=== PATIENT | female | born 1970 ===

== ENCOUNTER 2017-04-27 09:59 | Observation (INO) | payer BC, MEDICAID ==
[2017-04-27 10:01] VITALS: BMI 33.9
[2017-04-27] MEDS ORDERED: Sodium Chloride 0.9% 1,000 ML IV STA (10:31)
[2017-04-27] MEDS ORDERED: Iohexol 240 (50 ml) PO ONE (10:33)
--- NOTE | 2017-04-27 10:43 | ED PDOC ---
HPI: Abdomen Time Seen by Provider: 04/27/17 10:10 Chief Complaint (Nursing): Abdominal Pain Chief Complaint (Provider): Abdominal Pain History Per: Patient History/Exam Limitations: no limitations Onset/Duration Of Symptoms: Hrs (since waking up) Current Symptoms Are (Timing): Still Present Associated Symptoms: Vomiting Additional Complaint(s): Lanny Pulido is a 46 y/o female with past medical history of non-insulin dependent diabetes and hypertension, who presents to the ED complaining of left- sided abdominal pain radiating toward the back, since waking up this morning. Patient also reports nausea and vomiting this morning, with associated urinary incontinence during the vomiting. Since then, patient is urinating normally. No diarrhea, hematuria, chest pain, shortness of breath, or history of similar pain. PMD: Unknown Past Medical History Reviewed: Historical Data, Nursing Documentation, Vital Signs Vital Signs: Last Vital Signs Temp 98.6 F 04/27/17 10:02 Pulse 67 04/27/17 12:38 Resp 20 04/27/17 12:38 BP 124/71 04/27/17 12:38 Pulse Ox 100 04/27/17 13:39 - Medical History PMH: Diabetes, HTN Denies: HIV, Chronic Kidney Disease - Surgical History Surgical History: Cholecystectomy - Family History Family History: States: Unknown Family Hx - Social History Current smoker - smoking cessation education provided: No Alcohol: None Drugs: Denies - Home Medications Home Medications: Ambulatory Orders Medication Instructions Recorded Losartan/Hydrochlorothiazide 1 tab PO DAILY 02/01/15 [Hyzaar 25 mg-100 mg] amLODIPine [Norvasc] 5 mg PO DAILY 02/01/15 Ciprofloxacin HCl [Cipro] 500 mg PO BID #20 tab 10/17/16 Dicyclomine [Dicyclomine HCl] 10 mg PO TID #12 cap 10/17/16 Famotidine [Pepcid] 20 mg PO Q12 #20 tab 10/17/16 Tamsulosin [Flomax] 0.4 mg PO DAILY #6 cap 10/17/16 traMADol [Ultram] 50 mg PO Q8 #10 tab 10/17/16 - Allergies Allergies/Adverse Reactions: Allergies Allergy/AdvReac Type Severity Reaction Status Date / Time No Known Allergies Allergy Verified 10/17/16 09:25 Review of Systems ROS Statement: Except As Marked, All Systems Reviewed And Found Negative Constitutional: Negative for: Fever, Chills Cardiovascular: Negative for: Chest Pain Respiratory: Negative for: Shortness of Breath Gastrointestinal: Positive for: Nausea, Vomiting, Abdominal Pain (left-sided, radiates to back). Negative for: Diarrhea Genitourinary Female: Negative for: Incontinence, Hematuria Musculoskeletal: Negative for: Back Pain Neurological: Negative for: Numbness, Dizziness Physical Exam - Reviewed Nursing Documentation Reviewed: Yes Vital Signs Reviewed: Yes - Physical Exam Appears: Positive for: Non-toxic, No Acute Distress Head Exam: Positive for: ATRAUMATIC, NORMAL INSPECTION, NORMOCEPHALIC Skin: Positive for: Normal Color, Warm, Dry Eye Exam: Positive for: EOMI, Normal appearance, PERRL Neck: Positive for: Normal, Painless ROM, Supple Cardiovascular/Chest: Positive for: Regular Rate, Rhythm. Negative for: Murmur Respiratory: Positive for: Normal Breath Sounds. Negative for: Accessory Muscle Use, Respiratory Distress Gastrointestinal/Abdominal: Positive for: Soft, Tenderness (tenderness to left upper and mid abdomen). Negative for: Other (Flank tenderness) Back: Positive for: Normal Inspection. Negative for: L CVA Tenderness, R CVA Tenderness, Vertebral Tenderness Extremity: Positive for: Normal ROM. Negative for: Pedal Edema, Deformity Neurologic/Psych: Positive for: Alert, Oriented. Negative for: Motor/Sensory Deficits - Laboratory Results Result Diagrams: 04/27/17 10:40 04/27/17 10:40 - ECG O2 Sat by Pulse Oximetry: 100 (RA) Pulse Ox Interpretation: Normal - CT Scan/US ct Other Rad Studies (CT/US): Read By Radiologist Other Rad Interpretation: 7cm left periumbilical hernia with omentum fat - Progress ED Course And Treament: 1533: Stable. AAOx3. Spoke with Dr. Ann. Wants pt. to be admit if still painful. Spoke with Dr. Laughlin, will admit. Medical Decision Making Medical Decision Making: Time: 10:31 Impression: Abdominal Pain Initial Plan: --CMP --Lipase --CBC w differential --Urine --Urine dipstick --CT Abdomen/Pelvis PO & IV contrast --NS IV 1000 ml at 1000 mls/hr --Iohexol 50 ml PO --Morphine 4 mg IV --Zofran 4 mg Iv --Placed on ED-OBS for abdominal pain Scribe Attestation: Documented by Ana Morocho, acting as a scribe for De Jesus MD Provider Scribe Attestation: All medical record entries made by the Scribe were at my direction and personally dictated by me. I have reviewed the chart and agree that the record accurately reflects my personal performance of the history, physical exam, medical decision making, and the department course for this patient. I have also personally directed, reviewed, and agree with the discharge instructions and disposition. ED OBSERVATION Date of observation admission: 04/27/17 Time of observation admission: 10:31 - Observation admission statement Patient is being placed in observation because:: Abdominal pain - Goals of Observation Goals of observation are:: Time extensive work up - Progress Note Progress Note: 04/27/17 Time: 10:31 --Patient is resting. Vital signs stable. Time: 12:00 --Patient continuing to rest. Vital signs stable. Time: 13:30 --Patient is resting. Vital signs stable. Disposition - Clinical Impression Clinical Impression: Abdominal pain - Patient ED Disposition Is Patient to be Admitted: Yes Counseled Patient/Family Regarding: Studies Performed, Diagnosis - Disposition Disposition Time: 15:34 Condition: FAIR - Pt Status Changed To: Hospital Disposition Of: Observation - POA Present On Arrival: None
[2017-04-27 10:51] LABS: BASO % 0.5 % (0.0-2.0); EOS # 0.3 K/uL (0.0-0.7); EOS % 4.1 % (0.0-4.0); HEMATOCRIT 38.7 % (34.0-47.0); LYMPH # 1.8 K/uL (1.0-4.3); LYMPH % 23.4 % (20.0-40.0); MEAN CORPUSCULAR HEMOGLOBIN 29.1 pg (27.0-31.0); MEAN CORPUSCULAR HGB CONC 33.5 g/dL (33.0-37.0); MEAN PLATELET VOLUME 8.2 fl (7.2-11.7); MONO # 0.4 K/uL (0.0-0.8); MONO % 4.9 % (0.0-10.0); NEUT % 67.1 % (50.0-75.0); NRBC % 0.1 % (0.0-0.0); RED CELL DISTRIBUTION WIDTH 16.3 % (11.5-14.5); WHITE BLOOD COUNT 7.5 K/uL (4.8-10.8)
[2017-04-27 10:57] LABS: ALB/GLOB RATIO 1.3 (1.0-2.1); ALKALINE PHOSPHATASE 71 U/L (38-126); ALT/SGPT 32 U/L (9-52); AST/SGOT 26 U/L (14-36); BILIRUBIN,TOTAL 0.4 mg/dl (0.2-1.3); BLOOD UREA NITROGEN 17 mg/dl (7-17); CALCIUM 9.1 mg/dL (8.4-10.2); CARBON DIOXIDE 21 mmol/L (22-30); CHLORIDE 106 mmol/L (98-107); GFR AFRICAN-AMERICAN > 60; GLUCOSE,RANDOM 158 mg/dL (65-105); LIPASE 51 U/L (23-300); POTASSIUM 3.5 MMOL/L (3.6-5.0); SODIUM 140 mmol/l (132-148); TOTAL PROTEIN 7.4 G/DL (6.3-8.2)
[2017-04-27] MEDS ORDERED: Iohexol 300 50 ML ONE (12:20)
[2017-04-27] MEDS ORDERED: Sodium Chloride 0.9% 50 ML IV ONE (12:21)
--- NOTE | 2017-04-27 14:22 | CT ---
PROCEDURE: CT Abdomen and Pelvis with contrast HISTORY: abd pain COMPARISON: None. TECHNIQUE: Contrast dose: 100 cc of Omnipaque 350 Radiation dose: Total exam DLP = 1298 mGy-cm. This CT exam was performed using one or more of the following dose reduction techniques: Automated exposure control, adjustment of the mA and/or kV according to patient size, and/or use of iterative reconstruction technique. FINDINGS: LOWER THORAX: Unremarkable. LIVER: Unremarkable. No gross lesion or ductal dilatation. GALLBLADDER AND BILE DUCTS: Cholecystectomy. . PANCREAS: Unremarkable. No gross lesion or ductal dilatation. SPLEEN: Unremarkable. ADRENALS: Unremarkable. No mass. KIDNEYS AND URETERS: Unremarkable. No hydronephrosis. No solid mass. VASCULATURE: Unremarkable. No aortic aneurysm. BOWEL: Unremarkable. No obstruction. No gross mural thickening. APPENDIX: Normal appendix. PERITONEUM: Unremarkable. No free fluid. No free air. LYMPH NODES: Unremarkable. No enlarged lymph nodes. BLADDER: Unremarkable. REPRODUCTIVE: Leiomyomatous uterus. BONES: No acute fracture. OTHER FINDINGS: 7 centimeter left periumbilical hernia containing omental fat. IMPRESSION: 7 centimeter left periumbilical hernia containing omental fat.
[2017-04-27 16:09] VITALS: PULSE 63; RESP 18; TEMP 98; O2SAT 99
[2017-04-27 16:10] VITALS: BP 120/64
--- NOTE | 2017-04-27 16:14 | CP.PCM.CON ---
History of Present Illness - History of Present Illness History of Present Illness: CC: abdominal pain HPI 46 year old female with PMH DM and HTN, ventral hernia presents to the emergency room with moderate to severe midepigastric/LUQ abdominal pain, sharp in nature, starting about 6 hours ago, associated with several episodes of NBNB emesis this morning. CT showed similar findings to 6 months ago -- ventral hernia, no signs of ischemia or incarceration. Pain controlled with morphine in ER. No further episodes of nauses or emesis. Discussed with Surgery master control supervisor as well as ER physician. Patient stable to return home with pain control as well as antiemetics. VSS, NAD. Patient to follow up with PCP as well as appointment with Dr. Ann, Surgery within one week. ROS: per HPI, 12 systems reviewed and negative PMD: DR. CHIDI MOORE PMH: DM HTN PSH: gallbladder C/Section FH: DM CAD HTN SH: denies tobacco, ETOH, IVDU Meds: as below Allergies: NKDA Vitals: reviewed and currently stable Temp Pulse Resp BP Pulse Ox 98 F 63 18 120/64 99 04/27/17 16:08 04/27/17 16:08 04/27/17 16:08 04/27/17 16:10 04/27/17 16:08 Exam: GEN: WDWN, alert, cooperative HEENT: NCAT, PERRL, EOMI NECK: supple, no JVD, no lymphadenopathy CARDIAC: +S1S2 RRR LUNG: CTAB No WRR ABD: SOFT tenderness at site of hernia ND BSX4 obese difficult to assess masses hsm EXT: +pedal pulses, equal strength NEURO: AAOx3 SKIN warm, dry PSYCH normal mood, normal affect Labs: 04/27/17 10:40 04/27/17 10:40 Rads: CT ABD +hernia, no incarceration noted Assessment and Plan: 46 year old female with PMH DM and HTN, ventral hernia presents to the emergency room with moderate to severe midepigastric/LUQ abdominal pain, sharp in nature, starting about 6 hours ago, associated with several episodes of NBNB emesis this morning. CT showed similar findings to 6 months ago -- ventral hernia, no signs of ischemia or incarceration. Pain controlled with morphine in ER. No further episodes of nauses or emesis. Discussed with Surgery master control supervisor as well as ER physician. Patient stable to return home with pain control as well as antiemetics. Patient to follow up with PCP as well as appointment with Dr. Ann, Surgery within one week. Past Patient History - Past Medical History & Family History Past Medical History?: Yes - Past Social History Alcohol: None Drugs: Denies - CARDIAC Hx Hypertension: Yes - PULMONARY Hx Respiratory Disorders: No - NEUROLOGICAL Hx Neurological Disorder: No - HEENT Hx HEENT Problems: No - RENAL Hx Chronic Kidney Disease: No - ENDOCRINE/METABOLIC Hx Diabetes Mellitus Type 2: Yes - HEMATOLOGICAL/ONCOLOGICAL Hx Human Immunodeficiency Virus (HIV): No - INTEGUMENTARY Hx Dermatological Problems: No - MUSCULOSKELETAL/RHEUMATOLOGICAL Hx Musculoskeletal Disorders: No Hx Falls: No - GASTROINTESTINAL Hx Gastrointestinal Disorders: No - GENITOURINARY/GYNECOLOGICAL Hx Genitourinary Disorders: No - PSYCHIATRIC Hx Psychophysiologic Disorder: No Hx Substance Use: No - SURGICAL HISTORY Hx Cholecystectomy: Yes - ANESTHESIA Hx Anesthesia: Yes Hx Anesthesia Reactions: No Hx Malignant Hyperthermia: No Meds Home Medications: Home Medication List Medication Instructions Recorded Confirmed Type Ibuprofen [Motrin] 600 mg PO TID 7 Days 04/27/17 Rx Allergies/Adverse Reactions: Allergies Allergy/AdvReac Type Severity Reaction Status Date / Time No Known Allergies Allergy Verified 10/17/16 09:25 Results - Vital Signs Recent Vital Signs: Last Vital Signs Temp 98 F 04/27/17 16:08 Pulse 63 04/27/17 16:08 Resp 18 04/27/17 16:08 BP 120/64 04/27/17 16:10 Pulse Ox 99 04/27/17 16:08 - Labs Result Diagrams: 04/27/17 10:40 04/27/17 10:40 Labs: Laboratory Results - last 24 hr 04/27/17 04/27/17 10:40 10:40 WBC 7.5 RBC 4.45 Hgb 13.0 Hct 38.7 MCV 87.0 D MCH 29.1 MCHC 33.5 RDW 16.3 H Plt Count 246 MPV 8.2 Neut % (Auto) 67.1 Lymph % (Auto) 23.4 [place] % (Auto) 4.9 Eos % (Auto) 4.1 H Baso % (Auto) 0.5 Neut # 5.0 Lymph # 1.8 [place] # 0.4 Eos # 0.3 Baso # 0.0 Sodium 140 Potassium 3.5 L Chloride 106 Carbon Dioxide 21 L Anion Gap 17 BUN 17 Creatinine 0.8 Est GFR ( Amer) > 60 Est GFR (Non-Af Amer) > 60 Random Glucose 158 H Calcium 9.1 Total Bilirubin 0.4 AST 26 ALT 32 Alkaline Phosphatase 71 Total Protein 7.4 Albumin 4.2 Globulin 3.2 Albumin/Globulin Ratio 1.3 Lipase 51
== END 2017-04-27 17:10 | disposition home or self-care (01) ==
LOC: H.ER 09:59 → H.EROBSV 10:31 → OBSVTOIN 10:31 → INTOOBSV 10:31 → H.MEDSURG1 15:44 → H.ERHOLD 17:10 → H.MEDSURG1 23:41 → H.ERHOLD 23:41
PROVIDERS: ADMIT Student in an Organized Health Care Education/Training Program; ATTEND Student in an Organized Health Care Education/Training Program
DX: R10.12 Left upper quadrant pain (principal); K43.9 Ventral hernia without obstruction or gangrene; I10 Essential (primary) hypertension; E11.9 Type 2 diabetes mellitus without complications
CPT/HCPCS: 74177; 80053; 81025; 83690; 85025; 99283; G0378; J2270; J2405; J7040; Q9966; Q9967

== ENCOUNTER 2017-06-02 12:53 | Emergency (ER) | payer BC ==
[2017-06-02 12:53] VITALS: BMI 33.9
[2017-06-02 13:00] VITALS: RESP 18
[2017-06-02] MEDS ORDERED: Sodium Chloride 0.9% 1,000 ML IV STA (13:18)
--- NOTE | 2017-06-02 13:22 | ED PDOC ---
HPI:Nausea, Vomiting, Diarrhea Time Seen by Provider: 06/02/17 13:11 Chief Complaint (Nursing): Dizziness/Lightheaded Chief Complaint (Provider): dizzy History Per: Patient History/Exam Limitations: no limitations Onset/Duration Of Symptoms: Days (tiday) Current Symptoms Are (Timing): Still Present Additional Complaint(s): Dizzy, room spinning. Nausea, nonbloody vomit. Also cough, congestion, runny nose. Ongoing since morning. No chest pain, dyspnea, weakness, headaches, numbness, tingles. No abd pain, leg pain. No fever. No neck pain. Past Medical History Reviewed: Nursing Documentation, Vital Signs Vital Signs: Last Vital Signs Temp 97.0 F L 06/02/17 12:57 Pulse 63 06/02/17 12:57 Resp 18 06/02/17 12:57 BP 99/43 L 06/02/17 12:57 Pulse Ox 95 06/02/17 12:57 - Medical History PMH: Diabetes, HTN Denies: HIV, Chronic Kidney Disease - Surgical History Surgical History: Cholecystectomy - Family History Family History: States: Unknown Family Hx - Living Arrangements Living Arrangements: With Family - Social History Alcohol: None Drugs: Denies - Home Medications Home Medications: Ambulatory Orders Medication Instructions Recorded Losartan/Hydrochlorothiazide 1 tab PO DAILY 02/01/15 [Hyzaar 25 mg-100 mg] amLODIPine [Norvasc] 5 mg PO DAILY 02/01/15 Ciprofloxacin HCl [Cipro] 500 mg PO BID #20 tab 10/17/16 Dicyclomine [Dicyclomine HCl] 10 mg PO TID #12 cap 10/17/16 Famotidine [Pepcid] 20 mg PO Q12 #20 tab 10/17/16 Tamsulosin [Flomax] 0.4 mg PO DAILY #6 cap 10/17/16 traMADol [Ultram] 50 mg PO Q8 #10 tab 10/17/16 Ibuprofen [Motrin] 600 mg PO TID 7 Days tab 04/27/17 Meclizine [Antivert] 12.5 mg PO DAILY PRN 5 Days tab 06/02/17 Ondansetron [Zofran] 4 mg PO Q8H PRN #6 tab 06/02/17 - Allergies Allergies/Adverse Reactions: Allergies Allergy/AdvReac Type Severity Reaction Status Date / Time No Known Allergies Allergy Verified 03/08/17 09:25 Review of Systems ROS Statement: Except As Marked, All Systems Reviewed And Found Negative ENT: Positive for: Nose Congestion Respiratory: Positive for: Cough Gastrointestinal: Positive for: Nausea, Vomiting Neurological: Positive for: Dizziness Physical Exam - Reviewed Nursing Documentation Reviewed: Yes Vital Signs Reviewed: Yes - Physical Exam Appears: Positive for: Non-toxic, No Acute Distress Head Exam: Positive for: ATRAUMATIC, NORMAL INSPECTION, NORMOCEPHALIC Skin: Positive for: Normal Color, Warm, DRY Eye Exam: Positive for: EOMI, Normal appearance, PERRL ENT: Positive for: Nasal Congestion. Negative for: Pharyngeal Erythema, Tonsillar Exudate Neck: Positive for: Normal, Painless ROM, Supple Cardiovascular/Chest: Positive for: Regular Rate, Rhythm. Negative for: Edema Respiratory: Positive for: CNT, Normal Breath Sounds Gastrointestinal/Abdominal: Positive for: Normal Exam, Bowel Sounds, Soft. Negative for: Tenderness Back: Positive for: Normal Inspection. Negative for: L CVA Tenderness, R CVA Tenderness Extremity: Positive for: Normal ROM. Negative for: Tenderness, Pedal Edema Neurologic/Psych: Positive for: Alert, cd reactor operator II-XII, Oriented. Negative for: Motor/Sensory Deficits, Aphasia, Facial Droop - Laboratory Results Result Diagrams: 06/02/17 13:50 06/02/17 13:50 Interpretation Of Abn Labs: 19 bun; 3.1 k - ECG ECG: Positive for: Interpreted By Me, Viewed By Ak ECG Rhythm: Positive for: Normal QRS, Normal ST Segment, Sinus Rhythm O2 Sat by Pulse Oximetry: 95 Pulse Ox Interpretation: Normal - CT Scan/US head Other Rad Studies (CT/US): Read By Radiologist Other Rad Interpretation: no acute - Progress ED Course And Treament: 1639: Feels much better. AAOx3. Not dizzy. Tolerated PO. Ambulated with no issues. Fu with pcp. Disposition - Clinical Impression Clinical Impression: Dizziness, URI (upper respiratory infection), Hypokalemia - Patient ED Disposition Is Patient to be Admitted: No Counseled Patient/Family Regarding: Studies Performed, Diagnosis, Need For Followup, Rx Given - Disposition Referrals: Mathew Hicks MD [Family Provider] - 06/03/17 Disposition: Routine/Home Disposition Time: 16:40 Condition: STABLE Additional Instructions: Return if not better in 3 days. Prescriptions: Meclizine [Antivert] 12.5 mg PO DAILY PRN 5 Days tab PRN Reason: Dizziness Ondansetron [Zofran] 4 mg PO Q8H PRN #6 tab PRN Reason: Nausea/Vomiting Instructions: Dizziness (ED), Hypokalemia (ED) Forms: [employer] ([place]) Print Language: ARMENIAN
[2017-06-02 13:57] LABS: BASO # 0.1 K/uL (0.0-0.2); BASO % 0.6 % (0.0-2.0); EOS # 0.4 K/uL (0.0-0.7); EOS % 4.4 % (0.0-4.0); HEMATOCRIT 38.8 % (34.0-47.0); LYMPH # 1.6 K/uL (1.0-4.3); LYMPH % 17.5 % (20.0-40.0); MEAN CELL VOLUME 88.7 fl (81.0-99.0); MEAN CORPUSCULAR HEMOGLOBIN 30.3 pg (27.0-31.0); MEAN CORPUSCULAR HGB CONC 34.2 g/dL (33.0-37.0); MEAN PLATELET VOLUME 7.9 fl (7.2-11.7); MONO # 0.6 K/uL (0.0-0.8); MONO % 6.6 % (0.0-10.0); NEUT # 6.6 K/uL (1.8-7.0); NEUT % 70.9 % (50.0-75.0); RED CELL DISTRIBUTION WIDTH 15.5 % (11.5-14.5); WHITE BLOOD COUNT 9.3 K/uL (4.8-10.8)
[2017-06-02 14:11] LABS: ALB/GLOB RATIO 1.3 (1.0-2.1); ALKALINE PHOSPHATASE 72 U/L (38-126); ALT/SGPT 38 U/L (9-52); AST/SGOT 37 U/L (14-36); BILIRUBIN,TOTAL 0.3 mg/dl (0.2-1.3); BLOOD UREA NITROGEN 19 mg/dl (7-17); CALCIUM 9.5 mg/dL (8.4-10.2); CARBON DIOXIDE 26 mmol/L (22-30); CHLORIDE 104 mmol/L (98-107); GFR AFRICAN-AMERICAN > 60; GLUCOSE,RANDOM 112 mg/dL (65-105); POTASSIUM 3.1 MMOL/L (3.6-5.0); SODIUM 141 mmol/l (132-148)
--- NOTE | 2017-06-02 14:51 | CT ---
PROCEDURE: CT HEAD WITHOUT CONTRAST. HISTORY: headache COMPARISON: None available. TECHNIQUE: Axial computed tomography images were obtained through the head/brain without intravenous contrast. Radiation dose: Total exam DLP = mGy-cm. This CT exam was performed using one or more of the following dose reduction techniques: Automated exposure control, adjustment of the mA and/or kV according to patient size, and/or use of iterative reconstruction technique. FINDINGS: HEMORRHAGE: No intracranial hemorrhage. BRAIN: No mass effect or edema. No atrophy or chronic microvascular ischemic changes. VENTRICLES: Unremarkable. No hydrocephalus. CALVARIUM: Unremarkable. PARANASAL SINUSES: Unremarkable as visualized. No significant inflammatory changes. MASTOID AIR CELLS: Unremarkable as visualized. No inflammatory changes. OTHER FINDINGS: None. IMPRESSION: Normal CT of the Head.
[2017-06-02] MEDS ORDERED: Potassium Chloride 20 mEq ER Tab PO STA (15:11)
[2017-06-02] MEDS ORDERED: Potassium Chloride 20 mEq ER Tab PO ONE ×2 (16:32→16:36)
[2017-06-02 16:53] VITALS: BP 120/78; PULSE 78; TEMP 97.5; O2SAT 98
--- NOTE | 2017-06-03 08:41 | CARD ---
APPROVED REPORT EKG Measurement Heart [id number] <Conclusion> Normal sinus rhythm Cannot rule out Anterior infarct, age undetermined Abnormal ECG
== END 2017-06-02 16:53 | disposition home or self-care (01) ==
LOC: H.ER 12:53
DX: R42 Dizziness and giddiness (principal); E87.6 Hypokalemia; E11.9 Type 2 diabetes mellitus without complications; I10 Essential (primary) hypertension
CPT/HCPCS: 70450; 80053; 81025; 84484; 85025; 87804; 93005; 96374; 99285; J2405; J7040

== ENCOUNTER 2017-08-20 15:57 | Emergency (ER) | payer BC ==
[2017-08-20 15:57] VITALS: BMI 33.9
[2017-08-20 16:24] VITALS: BP 105/71; PULSE 78; RESP 16; TEMP 98.6; O2SAT 98
[2017-08-20] MEDS ORDERED: Albuterol-Ipratrop 3 mg / 0.5 (3 ml) UD ONE (17:51)
[2017-08-20] MEDS: Albuterol-Ipratrop 3 mg / 0.5 (3 ml) UD INH STA (17:52)
--- NOTE | 2017-08-20 18:41 | ED PDOC ---
HPI: General Adult Time Seen by Provider: 08/20/17 17:13 Chief Complaint (Nursing): Flu-like Symptoms Chief Complaint (Provider): flu like symptoms History Per: Patient History/Exam Limitations: no limitations Onset/Duration Of Symptoms: Days (1-2) Have you had recent travel within the past 21 days to any of the following countries: [place], [place], [place] or [place]?: No Current Symptoms Are (Timing): Still Present Additional Complaint(s): 47yo F with cough nonproductive malaise fever chills dec PO intake and MIRANDA. x1- 2days. all family members with similar Past Medical History Reviewed: Historical Data, Nursing Documentation, Vital Signs Vital Signs: Last Vital Signs Temp 98.6 F 08/20/17 16:22 Pulse 78 08/20/17 16:22 Resp 16 08/20/17 16:22 BP 105/71 08/20/17 16:22 Pulse Ox 98 08/20/17 19:04 - Medical History PMH: Diabetes, HTN Denies: HIV, Chronic Kidney Disease - Surgical History Surgical History: Cholecystectomy - Family History Family History: States: Unknown Family Hx - Home Medications Home Medications: Ambulatory Orders Medication Instructions Recorded Losartan/Hydrochlorothiazide 1 tab PO DAILY 02/01/15 [Hyzaar 25 mg-100 mg] amLODIPine [Norvasc] 5 mg PO DAILY 02/01/15 Ciprofloxacin HCl [Cipro] 500 mg PO BID #20 tab 10/17/16 Dicyclomine [Dicyclomine HCl] 10 mg PO TID #12 cap 10/17/16 Famotidine [Pepcid] 20 mg PO Q12 #20 tab 10/17/16 Tamsulosin [Flomax] 0.4 mg PO DAILY #6 cap 10/17/16 traMADol [Ultram] 50 mg PO Q8 #10 tab 10/17/16 Ibuprofen [Motrin] 600 mg PO TID 7 Days tab 04/27/17 Meclizine [Antivert] 12.5 mg PO DAILY PRN 5 Days tab 06/02/17 Ondansetron [Zofran] 4 mg PO Q8H PRN #6 tab 06/02/17 Albuterol HFA [Ventolin HFA 90 2 puff IH Q6 #200 puff 08/20/17 mcg/actuation (8 g)] Ibuprofen [Motrin] 400 mg PO Q6 #30 tab 08/20/17 Oseltamivir Phosphate [Tamiflu] 75 mg PO BID #10 capsule 08/20/17 - Allergies Allergies/Adverse Reactions: Allergies Allergy/AdvReac Type Severity Reaction Status Date / Time No Known Allergies Allergy Verified 08/20/17 16:22 Review of Systems ROS Statement: Except As Marked, All Systems Reviewed And Found Negative Respiratory: Positive for: Cough. Negative for: Shortness of Breath, Sputum Gastrointestinal: Negative for: Nausea, Vomiting Physical Exam - Reviewed Nursing Documentation Reviewed: Yes Vital Signs Reviewed: Yes - Physical Exam Appears: Positive for: Non-toxic, No Acute Distress, Uncomfortable Skin: Positive for: Normal Color, Warm, DRY Eye Exam: Positive for: Normal appearance, EOMI, PERRL ENT: Positive for: Normal ENT Inspection Cardiovascular/Chest: Positive for: Regular Rate, Rhythm Respiratory: Positive for: Normal Breath Sounds. Negative for: Wheezing Neurologic/Psych: Positive for: Alert, Oriented - ECG O2 Sat by Pulse Oximetry: 98 - Radiology X-Ray: Interpreted by Me, Read By Radiologist X-Ray Interpretation: No Acute Disease Medical Decision Making Medical Decision Making: pt with flu like symptoms will be d.c with tamiflu. given duoneb and motrin for fever Disposition - Clinical Impression Clinical Impression: Influenza, Influenza-like symptoms - Patient ED Disposition Is Patient to be Admitted: No Counseled Patient/Family Regarding: Studies Performed, Diagnosis, Need For Followup, Rx Given - Disposition Disposition: Routine/Home Disposition Time: 18:44 Condition: STABLE Prescriptions: Albuterol HFA [Ventolin HFA 90 mcg/actuation (8 g)] 2 puff IH Q6 #200 puff Ibuprofen [Motrin] 400 mg PO Q6 #30 tab Oseltamivir Phosphate [Tamiflu] 75 mg PO BID #10 capsule Instructions: Influenza (ED) Forms: [employer] ([place]izen [place]), [facility] ED School/Work Excuse
--- NOTE | 2017-08-21 10:58 | CARD ---
APPROVED REPORT EKG Measurement Heart [id number] <Conclusion> Normal sinus rhythm Left axis deviation Poor R wave progression V1 to V5 Abnormal ECG
== END 2017-08-20 19:34 | disposition home or self-care (01) ==
LOC: H.ER 15:57
DX: J10.1 Influenza due to other identified influenza virus with other respiratory manifestations (principal); E11.9 Type 2 diabetes mellitus without complications; I10 Essential (primary) hypertension

== ENCOUNTER 2018-12-04 15:42 | Emergency (ER) | payer BC ==
[2018-12-04 15:42] VITALS: BMI 33.9
[2018-12-04 15:55] VITALS: TEMP 98.6; O2SAT 98
[2018-12-04] MEDS ORDERED: DiphenhydrAMINE 50 mg/ml Inj IVP STA (16:44)
--- NOTE | 2018-12-04 16:46 | ED PDOC ---
Lower Extremity Pain/Injury Time Seen by Provider: 12/04/18 16:24 Chief Complaint (Nursing): Lower Extremity Problem/Injury Chief Complaint (Provider): Leg pain History Per: Patient Additional Complaint(s): 48 yo female, PMH of asthma, DM and HTN, presents to ED with complaints of LE rash that developed 2 weeks ago, associated with swelling and pain. Pt has not taken any medications thus far. No redness or swelling to joints. no fever or chills. Past Medical History Reviewed: Nursing Documentation, Vital Signs Vital Signs: Last Vital Signs Temp 98.6 F 12/04/18 15:51 Pulse 70 12/04/18 15:51 Resp 16 12/04/18 15:51 BP 118/74 12/04/18 15:51 Pulse Ox 98 12/04/18 15:51 - Medical History PMH: Diabetes, HTN Denies: HIV, Chronic Kidney Disease - Surgical History Surgical History: Cholecystectomy - Family History Family History: States: Unknown Family Hx - Living Arrangements Living Arrangements: With Family - Home Medications Home Medications: Ambulatory Orders Medication Instructions Recorded Losartan/Hydrochlorothiazide 1 tab PO DAILY 02/01/15 [Hyzaar 25 mg-100 mg] amLODIPine [Norvasc] 5 mg PO DAILY 02/01/15 Ciprofloxacin HCl [Cipro] 500 mg PO BID #20 tab 10/17/16 Dicyclomine [Dicyclomine HCl] 10 mg PO TID #12 cap 10/17/16 Famotidine [Pepcid] 20 mg PO Q12 #20 tab 10/17/16 Tamsulosin [Flomax] 0.4 mg PO DAILY #6 cap 10/17/16 traMADol [Ultram] 50 mg PO Q8 #10 tab 10/17/16 Ibuprofen [Motrin] 600 mg PO TID 7 Days tab 04/27/17 Meclizine [Antivert] 12.5 mg PO DAILY PRN 5 Days tab 06/02/17 Ondansetron [Zofran] 4 mg PO Q8H PRN #6 tab 06/02/17 Albuterol HFA [Ventolin HFA 90 2 puff IH Q6 #200 puff 08/20/17 mcg/actuation (8 g)] Ibuprofen [Motrin] 400 mg PO Q6 #30 tab 08/20/17 Oseltamivir Phosphate [Tamiflu] 75 mg PO BID #10 capsule 01/09/18 DiphenhydrAMINE [Benadryl] 50 mg PO Q4 PRN #30 cap 12/04/18 Methylprednisolone [Medrol Dose 4 mg PO DAILY #21 mg 12/04/18 Pack (21 tabs)] Triamcinolone 0.1% [Triamcinolone 0.1 cre TP DAILY #1 tube 12/04/18 0.1% Cream] - Allergies Allergies/Adverse Reactions: Allergies Allergy/AdvReac Type Severity Reaction Status Date / Time No Known Allergies Allergy Verified 12/04/18 15:49 Review of Systems ROS Statement: Except As Marked, All Systems Reviewed And Found Negative Skin: Positive for: Rash Physical Exam - Reviewed Nursing Documentation Reviewed: Yes Vital Signs Reviewed: Yes - Physical Exam Appears: Positive for: Well, Non-toxic, No Acute Distress Head Exam: Positive for: ATRAUMATIC, NORMAL INSPECTION, NORMOCEPHALIC Skin: Positive for: Normal Color, Warm, Rash (LLE- mid tibial shaft (+) cluzter of scabbed over papules, no surrounding erythema.) Eye Exam: Positive for: EOMI, Normal appearance, PERRL ENT: Positive for: Normal ENT Inspection Neck: Positive for: Normal, Painless ROM Cardiovascular/Chest: Positive for: Regular Rate, Rhythm Respiratory: Positive for: CNT, Normal Breath Sounds Gastrointestinal/Abdominal: Positive for: Normal Exam, Soft Back: Positive for: Normal Inspection Extremity: Positive for: Normal ROM, Tenderness, Other (DP and PT pulses 2+). Negative for: Calf Tenderness, Deformity, Swelling Neurological/Psych: Positive for: Awake, Alert, Normal Tone - Laboratory Results Result Diagrams: 12/04/18 17:00 12/04/18 17:00 - ECG O2 Sat by Pulse Oximetry: 98 Medical Decision Making Medical Decision Making: IV Solumedrol and Benadryl administered. Duplex LE US obtained: Negative for DVT B/L Pt doing well on re-eval, edema improving and Pt reports pruritus improved as well. Stable for discharge at this time. Given RX to continue Medrol, Benadryl and triamcinalone cream. Advised to return if at anytime condition worsens Disposition - Clinical Impression Clinical Impression: Leg pain, Contact dermatitis, Hyperkalemia - Patient ED Disposition Is Patient to be Admitted: No - Disposition Disposition: Routine/Home Disposition Time: 20:09 Condition: STABLE Prescriptions: DiphenhydrAMINE [Benadryl] 50 mg PO Q4 PRN #30 cap PRN Reason: Rash Methylprednisolone [Medrol Dose Pack (21 tabs)] 4 mg PO DAILY #21 mg Triamcinolone 0.1% [Triamcinolone 0.1% Cream] 0.1 cre TP DAILY #1 tube Instructions: Dermatitis Forms: [employer] ([place])
[2018-12-04] MEDS ORDERED: DiphenhydrAMINE 50 mg/ml Inj ONE (17:01)
[2018-12-04 17:20] LABS: BASO % 0.4 % (0.0-2.0); EOS # 0.2 K/uL (0.0-0.7); EOS % 1.6 % (0.0-4.0); HEMOGLOBIN 13.8 g/dL (12.0-16.0); LYMPH # 2.7 K/uL (1.0-4.3); LYMPH % 28.4 % (20.0-40.0); MEAN CELL VOLUME 94.2 fl (81.0-99.0); MEAN CORPUSCULAR HEMOGLOBIN 31.9 pg (27.0-31.0); MEAN CORPUSCULAR HGB CONC 33.9 g/dL (33.0-37.0); MONO # 0.6 K/uL (0.0-0.8); MONO % 6.2 % (0.0-10.0); NEUT % 63.4 % (50.0-75.0); NRBC % 0.2 % (0.0-0.0); RBC 4.31 Mil/uL (3.80-5.20); RED CELL DISTRIBUTION WIDTH 13.4 % (11.5-14.5); WHITE BLOOD COUNT 9.5 K/uL (4.8-10.8)
[2018-12-04 17:23] LABS: ALB/GLOB RATIO 1.3 (1.0-2.1); ALBUMIN 4.4 g/dL (3.5-5.0); ALT/SGPT 87 U/L (9-52); AST/SGOT 66 U/L (14-36); BLOOD UREA NITROGEN 17 mg/dl (7-17); CALCIUM 9.6 mg/dL (8.4-10.2); GFR NON-AFRICAN AMERICAN > 60
--- NOTE | 2018-12-04 18:42 | US ---
Date of service: 12/04/2018 PROCEDURE: Bilateral lower extremity venous duplex Doppler. HISTORY: r/o DVT COMPARISON: None available. TECHNIQUE: Bilateral common femoral, superficial femoral, popliteal and posterior tibial veins were evaluated. Flow was assessed with color Doppler, compressibility, assessment of phasic flow and augmentation response. FINDINGS: COMMON FEMORAL VEIN: Right CFV: Unremarkable. Left CFV: Unremarkable. SUPERFICIAL FEMORAL VEIN: Right SFV: Unremarkable. Left SFV: Unremarkable. POPLITEAL VEIN: Right Popliteal: Unremarkable. Left Popliteal: Unremarkable. POSTERIOR TIBIAL VEIN: Right PTV: Unremarkable. Left PTV: Unremarkable. OTHER FINDINGS: None. IMPRESSION: No evidence of deep venous thrombosis.
[2018-12-04 19:07] VITALS: BP 103/57; PULSE 66; RESP 21
[2018-12-04] MEDS ORDERED: Potassium Chloride 20 mEq ER Tab PO ONE (20:07)
== END 2018-12-04 20:42 | disposition home or self-care (01) ==
LOC: H.ER 15:42
DX: L25.9 Unspecified contact dermatitis, unspecified cause (principal); E87.5 Hyperkalemia; E11.9 Type 2 diabetes mellitus without complications; I10 Essential (primary) hypertension
CPT/HCPCS: 80053; 81025; 85025; 93970; 96374; 96375; 99283; J1200; J2930

== ENCOUNTER 2019-01-05 16:06 | Emergency (ER) | payer BC ==
[2019-01-05 16:06] VITALS: BMI 33.9
[2019-01-05] MEDS ORDERED: DiphenhydrAMINE 50 mg/ml Inj IVP STA (17:03)
--- NOTE | 2019-01-05 17:28 | ED PDOC ---
HPI: Abdomen Time Seen by Provider: 01/05/19 16:42 Chief Complaint (Nursing): Abdominal Pain Chief Complaint (Provider): Abdominal Pain History Per: Patient History/Exam Limitations: no limitations Onset/Duration Of Symptoms: Hrs Current Symptoms Are (Timing): Still Present Additional Complaint(s): 48 y/o female with a PMHx of HTN and DM presents to the ED for evaluation of abdominal pain. Patient reports of having woke up this morning with mild abdominal pain that has worsened over the course of the day. Patient reports of developing sharp, severe abdominal pain associated with 5 episodes of non- bloody, non-bilious vomiting about one or two hours prior to arrival. Patient denies constipation, diarrhea, melena, hematochezia, urinary symptoms, vaginal bleeding and vaginal discharge. Patient notes her last normal bowel movement was last night. Patient reports of having eaten breakfast this morning but denies eating lunch. Patient notes of experiencing similar pain about a year and a half ago and diagnosed with a hernia that did not require surgery at that time. Patient states pain radiates down the left and to the back PMD: Mathew Hicks LNMP: One Week ago Abnormal Vaginal Bleeding: No Past Medical History Reviewed: Historical Data, Nursing Documentation, Vital Signs Vital Signs: Last Vital Signs Temp 98.7 F 01/05/19 16:14 Pulse 66 01/05/19 16:14 Resp 18 01/05/19 16:14 BP 113/42 L 01/05/19 16:14 Pulse Ox 98 01/05/19 16:14 Primary Care Provider: Mathew Hicks - Medical History PMH: Diabetes, HTN Denies: HIV, Chronic Kidney Disease - Surgical History Surgical History: Cholecystectomy, - Family History Family History: States: Hypertension - Social History Current smoker - smoking cessation education provided: No Alcohol: None Drugs: Denies - Home Medications Home Medications: Ambulatory Orders Medication Instructions Recorded Losartan/Hydrochlorothiazide 1 tab PO DAILY 02/01/15 [Hyzaar 25 mg-100 mg] amLODIPine [Norvasc] 5 mg PO DAILY 02/01/15 Ciprofloxacin HCl [Cipro] 500 mg PO BID #20 tab 10/17/16 Dicyclomine [Dicyclomine HCl] 10 mg PO TID #12 cap 10/17/16 Famotidine [Pepcid] 20 mg PO Q12 #20 tab 10/17/16 Tamsulosin [Flomax] 0.4 mg PO DAILY #6 cap 10/17/16 traMADol [Ultram] 50 mg PO Q8 #10 tab 10/17/16 Ibuprofen [Motrin] 600 mg PO TID 7 Days tab 04/27/17 Meclizine [Antivert] 12.5 mg PO DAILY PRN 5 Days tab 06/02/17 Ondansetron [Zofran] 4 mg PO Q8H PRN #6 tab 06/02/17 Albuterol HFA [Ventolin HFA 90 2 puff IH Q6 #200 puff 08/20/17 mcg/actuation (8 g)] Ibuprofen [Motrin] 400 mg PO Q6 #30 tab 08/20/17 Oseltamivir Phosphate [Tamiflu] 75 mg PO BID #10 capsule 08/20/17 DiphenhydrAMINE [Benadryl] 50 mg PO Q4 PRN #30 cap 12/04/18 Methylprednisolone [Medrol Dose 4 mg PO DAILY #21 mg 12/04/18 Pack (21 tabs)] Triamcinolone 0.1% [Triamcinolone 0.1 cre TP DAILY #1 tube 12/04/18 0.1% Cream] Ibuprofen [Motrin Tab] 600 mg PO Q8 PRN #60 tab 01/05/19 Ondansetron ODT [Zofran ODT] 1 odt PO Q6 PRN #20 odt 01/05/19 - Allergies Allergies/Adverse Reactions: Allergies Allergy/AdvReac Type Severity Reaction Status Date / Time No Known Allergies Allergy Verified 12/04/18 15:49 Review of Systems ROS Statement: Except As Marked, All Systems Reviewed And Found Negative (as per HPI) Gastrointestinal: Positive for: Vomiting, Abdominal Pain. Negative for: Diarrhea, Constipation, Melena, Hematochezia Genitourinary Female: Negative for: Dysuria, Frequency, Hematuria, Vaginal Discharge, Vaginal Bleeding Musculoskeletal: Positive for: Back Pain, Leg Pain Physical Exam - Reviewed Nursing Documentation Reviewed: Yes Vital Signs Reviewed: Yes - Physical Exam Appears: Positive for: In Acute Distress (and morbidly obese) Head Exam: Positive for: ATRAUMATIC, NORMOCEPHALIC Skin: Positive for: Warm, Dry ENT: Positive for: Moist Mucous Membranes, Pharynx Is (clear) Neck: Positive for: Painless ROM, Supple Cardiovascular/Chest: Positive for: Regular Rate, Rhythm. Negative for: Murmur Respiratory: Positive for: Normal Breath Sounds. Negative for: Respiratory Distress Gastrointestinal/Abdominal: Positive for: Soft, Tenderness (LLQ and left periumilical tenderness. No McBurney's Point Tenderness). Negative for: Mass, Guarding, Rebound Back: Positive for: Normal Inspection. Negative for: Decreased ROM Extremity: Positive for: Normal ROM. Negative for: Deformity Lymphatic: Negative for: Adenopathy Neurological/Psych: Positive for: Awake, Alert. Negative for: Motor/Sensory Deficits - Laboratory Results Result Diagrams: 01/05/19 18:10 01/05/19 18:10 - ECG O2 Sat by Pulse Oximetry: 98 (RA) Pulse Ox Interpretation: Normal Medical Decision Making Medical Decision Making: Time: 1703 Impression: Abdominal Pain Differentials include but not limited to incarcerated hernia, renal colic, colitis, diverticulitis and obstruction Plan: -- Type and Screen -- VBG -- CT Abd/Pelvis IV Contrast -- CMP -- Lact Acid, Plasma -- Lipase -- ED Urine -- ED Urine Dipstick -- CBC with Differentials -- PTT -- Prothrombin Time -- Bentyl 25 mg IVP -- Morphine 4 mg IVP -- Reglan 10 mg IV -- Toradol 30 mg IV -- Blood culture -- IV Insertion Time: 1945 EXAM: CT Abdomen and Pelvis with IV contrast CLINICAL HISTORY: Severe abd pain h/o hernia TECHNIQUE: Axial computed tomography images of the abdomen and pelvis with intravenous contrast. 891.15 mGy-cm CONTRAST: With; [id number] 95ML COMPARISON: None provided. FINDINGS: LUNG BASES: There is mild pleural thickening at the lung bases.. LIVER: There is fatty infiltration of the liver. GALLBLADDER AND BILE DUCTS: Gallbladder has been surgically removed. PANCREAS: Unremarkable. SPLEEN: Unremarkable. ADRENAL GLANDS: Unremarkable. Kidneys and urinary system: Small nonobstructing subcentimeter calculus right kidney. STOMACH AND BOWEL: Unremarkable appearance of the stomach and bowel. No evidence of bowel obstruction. No evidence suggesting enteritis or colitis. APPENDIX: No evidence of acute appendicitis on CT examination. PERITONEUM: No free fluid. No free air. Note is made of moderate size periumbilical hernia containing fat. LYMPH NODES: No lymphadenopathy is evident. REPRODUCTIVE: Mildly enlarged fibroid uterus. VASCULATURE: No evidence of abdominal aortic aneurysm. BONES: No aggressive appearing osseous lesion. No acute osseous pathology evident. IMPRESSION: Mild pleural thickening at the lung bases. Fatty infiltration of liver. Status post cholecystectomy. Moderate sized periumbilical hernia containing fat. Enlarged fibroid uterus. Clinical correlation advised. Electronically signed on January 05, 2019 7:46:46 PM EDT by: Sarmad Syed M.D., Certified by [facility], Diagnostic Radiology 750p DW pt findings and plan of care. Labs unremarkable. Pt feeling better with ER management. Advised surgery followup for further management of hernia. Stable for dc. -------- --------- Scribe Attestation: Documented by Margo Juarez, acting as a scribe for Pamela Sanchez MD. Provider Scribe Attestation: All medical record entries made by the Scribe were at my direction and personally dictated by me. I have reviewed the chart and agree that the record accurately reflects my personal performance of the history, physical exam, medical decision making, and the department course for this patient. I have also personally directed, reviewed, and agree with the discharge instructions and disposition. Disposition - Clinical Impression Clinical Impression: Hernia, Abdominal pain Counseled Patient/Family Regarding: Studies Performed, Diagnosis, Need For Followup, Rx Given - Disposition Referrals: Atul Darden MD [Staff Provider] - Mathew Hicks MD [Staff Provider] - 01/06/19 (VISITA A JASMINE DOCTOR POR LA MANANA A OBTENER UN REFERIDO A UN CIRUGANO) Disposition: Routine/Home Disposition Time: 20:00 Condition: IMPROVED Prescriptions: Ibuprofen [Motrin Tab] 600 mg PO Q8 PRN #60 tab PRN Reason: Pain, Moderate (4-7) Ondansetron ODT [Zofran ODT] 1 odt PO Q6 PRN #20 odt PRN Reason: Nausea/Vomiting Instructions: Acute Abdomen (Belly Pain), Adult (DC), Abdominal Hernia (DC) Print Language: ROMANIAN
[2019-01-05] MEDS ORDERED: Sodium Chloride 0.9% 500 ML IV STA ×2 (17:34→17:47)
[2019-01-05] MEDS ORDERED: Morphine 4 MG/ML VIAL ONE (17:36)
[2019-01-05] MEDS ORDERED: DiphenhydrAMINE 50 mg/ml Inj ONE (17:36)
[2019-01-05] MEDS ORDERED: Iohexol 300 100 ML IJ ONE (17:43)
[2019-01-05] MEDS ORDERED: Sodium Chloride 0.9% 50 ML IV ONE (17:43)
[2019-01-05] MEDS ORDERED: Morphine 4 MG/ML VIAL IVP STA (17:45)
[2019-01-05 18:36] LABS: BASO # 0.1 K/uL (0.0-0.2); BASO % 0.6 % (0.0-2.0); EOS # 0.1 K/uL (0.0-0.7); EOS % 1.1 % (0.0-4.0); LYMPH # 1.7 K/uL (1.0-4.3); LYMPH % 15.8 % (20.0-40.0); MEAN CELL VOLUME 95.1 fl (81.0-99.0); MEAN CORPUSCULAR HEMOGLOBIN 32.6 pg (27.0-31.0); MEAN CORPUSCULAR HGB CONC 34.3 g/dL (33.0-37.0); MEAN PLATELET VOLUME 8.1 fl (7.2-11.7); MONO # 0.7 K/uL (0.0-0.8); MONO % 6.2 % (0.0-10.0); NEUT # 8.1 K/uL (1.8-7.0); NEUT % 76.3 % (50.0-75.0); RED CELL DISTRIBUTION WIDTH 13.5 % (11.5-14.5); WHITE BLOOD COUNT 10.7 K/uL (4.8-10.8)
[2019-01-05 18:44] LABS: INR 1.1; PROTHROMBIN TIME 12.8 Seconds (9.8-13.1)
[2019-01-05 18:46] LABS: PARTIAL THROMBOPLASTIN TIME 27.6 Seconds (25.6-37.1)
[2019-01-05 18:47] LABS: ALB/GLOB RATIO 1.3 (1.0-2.1); ALBUMIN 4.3 g/dL (3.5-5.0); ALT/SGPT 102 U/L (9-52); AST/SGOT 80 U/L (14-36); BLOOD UREA NITROGEN 14 mg/dl (7-17); CALCIUM 9.3 mg/dL (8.4-10.2); GFR NON-AFRICAN AMERICAN > 60; LIPASE 63 U/L (23-300)
[2019-01-05] MEDS ORDERED: Potassium Chloride 20 mEq ER Tab PO STA (18:53)
[2019-01-05] MEDS ORDERED: Potassium CL 10 MEQ/50 ML 50 ML IVPB STA (18:53)
[2019-01-05] MEDS ORDERED: Potassium Chloride 20 mEq ER Tab PO ONE (19:26)
[2019-01-05] MEDS ORDERED: Potassium CL 10 MEQ/50 ML 50 ML ONE (19:26)
[2019-01-05 19:41] LABS: VENOUS BLOOD GAS BASE EXCESS 2.1 mmol/L (0.0-2.0); VENOUS BLOOD GAS PCO2 52 mmHg (40-60); VENOUS BLOOD GAS PO2 19 mm/Hg (30-55); VENOUS BLOOD PH 7.35 (7.32-7.43)
[2019-01-05 19:47] VITALS: RESP 16
[2019-01-05 20:12] VITALS: O2SAT 98
[2019-01-05 22:08] VITALS: BP 100/49; PULSE 60; TEMP 98.6
--- NOTE | 2019-01-06 11:52 | CT ---
Date of service: 01/05/2019 PROCEDURE: CT Abdomen and Pelvis with contrast HISTORY: severe abd pain h/o hernia COMPARISON: 10/17/2016 and 04/27/2017. TECHNIQUE: Intravenous contrast dose: 95 cc Omnipaque 300. Radiation dose: Total exam DLP = 891.15 mGy-cm. This CT exam was performed using one or more of the following dose reduction techniques: Automated exposure control, adjustment of the mA and/or kV according to patient size, and/or use of iterative reconstruction technique. FINDINGS: LOWER THORAX: Unremarkable. LIVER: Hepatic steatosis. No focal masses. No intrahepatic bile duct dilatation or perihepatic ascites. GALLBLADDER AND BILE DUCTS: Status post cholecystectomy. No abnormality is seen in the gallbladder fossa. PANCREAS: Unremarkable. No gross lesion or ductal dilatation. SPLEEN: Unremarkable. ADRENALS: Unremarkable. No mass. KIDNEYS AND URETERS: No hydronephrosis. No solid mass. Incidental finding(s): 5 mm lower pole calculus right kidney nonobstructing VASCULATURE: Unremarkable. No aortic aneurysm. No atherosclerotic calcification or mural plaque present. BOWEL: Unremarkable. No obstruction. No gross mural thickening. APPENDIX: Normal appendix. PERITONEUM: Unremarkable. No free fluid. No free air. LYMPH NODES: Unremarkable. No enlarged lymph nodes. BLADDER: Unremarkable. REPRODUCTIVE: Anteverted, myomatous uterus. BONES: No acute fracture. OTHER FINDINGS: Fat containing periumbilical hernia again noted. IMPRESSION: No acute or significant findings related to/ accounting for the clinical presentation. Additional benign and/or incidental findings described above. No significant interval change compared to the prior examination(s). Concordant results (preliminary interpretation) provided by [employer]. Procedure Completed: 19:17. Preliminary Report: Interpreted and electronically signed: 19:46. Final Interpretation: 10:48. January 06, 2019.
== END 2019-01-05 22:06 | disposition home or self-care (01) ==
LOC: H.ER 16:06
DX: K42.9 Umbilical hernia without obstruction or gangrene (principal); D25.9 Leiomyoma of uterus, unspecified; E11.9 Type 2 diabetes mellitus without complications; I10 Essential (primary) hypertension; K76.0 Fatty (change of) liver, not elsewhere classified
CPT/HCPCS: 74177; 80053; 81025; 82803; 82948; 83605; 83690; 85025; 85610; 85730; 86850; 86900; 87040; 96361; 96374; 96375; 99284; J1200; J1885; J2270; J2765; J3480; J7040; Q9967